=== PATIENT | female | born 1985 | race Caucasian/White ===

== ENCOUNTER 2016-07-05 13:08 | Emergency (ER) | payer MEDICAID ==
[2016-07-05] MEDS ORDERED: OPTIRAY 350 100 ML VIAL HMH IV ONE (13:09)
[2016-07-05] MEDS ORDERED: DILAUDID 1 MG/ML AMP ONE (16:32)
[2016-07-05] MEDS ORDERED: SODIUM CHLORIDE 0.9% 1,000 ML ONE (16:32)
[2016-07-05] MEDS ORDERED: ONDANSETRON 4 MG VIAL ONE ×2 (16:32→20:42)
[2016-07-05] MEDS ORDERED: MORPHINE 4 MG/ML SYR ONE (18:57)
== END 2016-07-05 21:16 | disposition home or self-care (01) ==
LOC: ER 13:08
CPT/HCPCS: 36415; 74177; 80048; 81001; 84703; 85025; 87077; 87088; 87186; 96361; 96374; 96375; 96376